=== PATIENT | female | born 1975 | race Caucasian/White ===

== ENCOUNTER 2016-03-20 05:21 | Emergency (ER) | payer MEDICAID ==
--- NOTE | 2016-03-20 05:24 | EDPHY ---
H & P HPI/ROS: HPI CHIEF COMPLAINT: Lightheadedness HISTORY OF PRESENT ILLNESS: This patient 40-year-old female, significant past medical history for anxiety and depression, she is homeless, she presents emergency room by ambulance at 5:30 a.m. in the morning [place] [employer] [place] andcalled 911. She tells me that she feels lightheaded she has been walking all night. She denies chest pain, shortness of breath, denies pain anywhere. She tells me that she feels lightheaded feels dehydrated she tells me she has been drinking lots of fluids but feels dehydrated. She is requesting IV fluids. Past Medical History: Anxiety, depression. Past Surgical History: Denies significant surgical history Social History: Smokes tobacco, homeless, denies alcohol or illicit drug Family History: Noncontributory ROS REVIEW OF SYSTEMS: A comprehensive 10 point review of systems is otherwise negative aside from elements mentioned in the history of present illness. Exam Constitutional appears well nontoxic, no acute distress, triage nursing summary reviewed, vital signs reviewed, awake/alert. Eyes normal conjunctivae and sclera, EOMI, PERRLA. HENT normal inspection, atraumatic, moist mucus membranes, no epistaxis, neck supple/ no meningismus, no raccoon eyes. Respiratory clear to auscultation bilaterally, normal breath sounds, no respiratory distress, no wheezing. Cardiovascular rate normal, regular rhythm, no murmur, no edema, distal pulses normal. Gastrointestinal soft, non-tender, no rebound, no guarding, normal bowel sounds, no distension, no pulsatile mass. Genitourinary no CVA tenderness. Musculoskeletal no midline vertebral tenderness, full range of motion, no calf swelling, no tenderness of extremities, no meningismus, good pulses, neurovascularly intact. Skin pink, warm, & dry, no rash, skin atraumatic. Neurologic awake, alert and oriented x 3, AAOx3, moves all 4 extremities equally, motor intact, sensory intact, CN II-XII intact, normal cerebellar, normal vision, normal speech. Psychiatric normal mood/affect. Heme/Lymph/Immune no lymphadenopathy. Differential Diagnosis: Includes but is not limited to in a particular order, dehydration, electrolyte abnormality, doubt cardiac arrhythmia, homelessness Medical Decision Making: Patient had an IV established will give her a IV fluid bolus as she is requesting IV fluids and says that she is dehydrated however clinically on exam she appears well, check basic electrolytes and EKG. Re-evaluation: EKG interpretation by me on record in [employer] system. Impression time of EKG is 5:50 a.m., this is sinus rhythm rate of 90. No acute ischemic changes. No prolonged intervals. No signs of arrhythmia. Normal appearing EKG. Re-evaluation at 6:04 a.m.: patient is resting comfortably infected time she is sleeping. She is on air sampling and monitoring with any signs of arrhythmia. She feels better after IV fluids. Blood work has been reviewed. She ambulated well to the bathroom and I difficulty. She denies chest pain shortness of breath or dizziness. She is agreeable for discharge. She does understand return to the ER she develops any worsening symptoms questions or concerns. Source: Patient, EMS - Personal History Tetanus Vaccine Date: 2014 - Medical/Surgical History Hx Asthma: No Hx Chronic Respiratory Disease: No Hx Diabetes: No Hx Cardiac Disease: No Hx Renal Disease: No Hx Cirrhosis: No Hx Alcoholism: Yes Hx HIV/AIDS: No Hx Splenectomy or Spleen Trauma: No Other PMH: pmh- suicide attempts, depression, anxiety. PSHx- denies - Social History Smoking Status: Heavy smoker Constitutional: Initial Vital Signs Temperature (C) 37.2 C 03/20/16 05:25 Heart Rate 90 03/20/16 05:25 Respiratory Rate 18 03/20/16 05:25 Blood Pressure 141/103 H 03/20/16 05:25 O2 Sat (%) 94 03/20/16 05:25 O2 Delivery Mode Room Air Allergies/Adverse Reactions: No Known Allergies Allergy (Verified 12/08/15 22:30) Home Medications: Medication Instructions Recorded diphenhydrAMINE 12/20/15 Medical Decision Making - Data Points Laboratory Results: Laboratory Results 03/20/16 05:45 03/20/16 05:45 03/20/16 05:45 WBC 11.87 H 10^3/uL (3.80-9.50) RBC 4.13 L 10^6/uL (4.18-5.33) Hgb 14.1 g/dL (12.6-16.3) Hct 41.6 % (38.0-47.0) MCV 100.7 H fL (81.5-99.8) MCH 34.1 pg (27.9-34.1) MCHC 33.9 g/dL (32.4-36.7) RDW 13.8 % (11.5-15.2) Plt Count 331 10^3/uL (150-400) MPV 9.1 fL (8.7-11.7) Neut % (Auto) 51.8 % (39.3-74.2) Lymph % (Auto) 40.4 % (15.0-45.0) [place] % (Auto) 5.9 % (4.5-13.0) Eos % (Auto) 1.2 % (0.6-7.6) Baso % (Auto) 0.4 % (0.3-1.7) Nucleat RBC Rel Count 0.0 % (0.0-0.2) Absolute Neuts (auto) 6.15 10^3/uL (1.70-6.50) Absolute Lymphs (auto) 4.79 H 10^3/uL (1.00-3.00) Absolute Monos (auto) 0.70 10^3/uL (0.30-0.80) Absolute Eos (auto) 0.14 10^3/uL (0.03-0.40) Absolute Basos (auto) 0.05 10^3/uL (0.02-0.10) Absolute Nucleated RBC 0.00 10^3/uL (0-0.01) Immature Gran % 0.3 % (0.0-1.1) Immature Gran # 0.04 10^3/uL (0.00-0.10) Sodium 138 mEq/L (134-144) Potassium 4.5 mEq/L (3.5-5.2) Chloride 104 mEq/L (97-110) Carbon Dioxide 22 mEq/l (22-31) Anion Gap 12 mEq/L (8-16) BUN 18 mg/dL (7-23) Creatinine 0.8 mg/dL (0.6-1.0) Estimated GFR > 60 Glucose 81 mg/dL (70-100) Calcium 9.6 mg/dL (8.5-10.4) Departure - Departure Disposition: Home, Routine, Self-Care Clinical Impression: Lightheadedness Condition: Good Instructions: Lightheadedness (ED) Additional Instructions: 1. Drink lots of fluids. 2. return emergency room if there is any worsening symptoms questions or concerns. Referrals: NONE *PRIMARY CARE P,. [Primary Care Provider] - As per Instructions
[2016-03-20] MEDS ORDERED: NS 1,000 ML IV ONE (05:26)
[2016-03-20 05:51] LABS: % IMMATURE GRANULYOCYTES 0.3 % (0.0-1.1); ABSOLUTE IMMATURE GRANULOCYTES 0.04 10^3/uL (0.00-0.10); ADD DIFF? NO; ADD MORPH? NO; ADD SCAN? NO; ATYPICAL LYMPHOCYTE FLAG 10 (0-99); FRAGMENT RBC FLAG 0 (0-99); HEMATOCRIT 41.6 % (38.0-47.0); HEMOGLOBIN 14.1 g/dL (12.6-16.3); LEFT SHIFT FLG 0 (0-99); LIPEMIA HEMOLYSIS FLAG 90 (0-99); MEAN CELL HEMOGLOBIN 34.1 pg (27.9-34.1); MEAN CELL HEMOGLOBIN CONCENTR. 33.9 g/dL (32.4-36.7); MEAN CELL VOLUME 100.7 fL (81.5-99.8); MEAN PLATELET VOLUME 9.1 fL (8.7-11.7); PLATELET CLUMPS FLAG 0 (0-99); PLATELET COUNT 331 10^3/uL (150-400); RED BLOOD CELL COUNT 4.13 10^6/uL (4.18-5.33); RED CELL DISTRIBUTION WIDTH 13.8 % (11.5-15.2)
--- NOTE | 2016-03-20 05:53 | CPEKG ---
Heart Rate: 90 RR Interval: 667 P-R Interval: 148 QRSD Interval: 76 QT Interval: 344 QTC Interval: 421 P [place]: 68 QRS [place]: 28 T Wave [place]: 41 EKG Severity - NORMAL ECG - EKG Impression: SINUS RHYTHM Electronically Signed By: Bobby Mercer 21-Mar-2016 22:25:10
[2016-03-20 06:01] LABS: ANION GAP 12 mEq/L (8-16); CALCIUM 9.6 mg/dL (8.5-10.4); CARBON DIOXIDE 22 mEq/l (22-31); CHLORIDE 104 mEq/L (97-110); CREATININE 0.8 mg/dL (0.6-1.0); GLOMERULAR FILTRATION RATE > 60; GLUCOSE 81 mg/dL (70-100); POTASSIUM 4.5 mEq/L (3.5-5.2); SODIUM 138 mEq/L (134-144)
[2016-03-20 07:01] VITALS: BP 127/99; PULSE 93; RESP 17; TEMP 99.7; O2SAT 95
== END 2016-03-20 06:58 | disposition home or self-care (01) ==
LOC: EDUNIT#
DX: R42 Dizziness and giddiness (principal); F17.200 Nicotine dependence, unspecified, uncomplicated

== ENCOUNTER 2016-04-07 06:27 | Emergency (ER) | payer MEDICAID ==
[2016-04-07 06:33] VITALS: PULSE 81
--- NOTE | 2016-04-07 07:40 | EDPHY ---
H & P Stated Complaint: Lower abd pain Time Seen by Provider: 04/07/16 07:38 HPI/ROS: CHIEF COMPLAINT: Lower abdominal pain HISTORY OF PRESENT ILLNESS: The patient is a 40 year old female presenting with new onset of lower abdominal pain. Her pain is constant. She has associated symptoms of dysuria as well as urinary frequency without relief. She has been having some diarrhea as well. Her LMP was 1 week ago. She is not currently sexually active. She denies fever. She notes some nausea, without emesis. REVIEW OF SYSTEMS: Aside from elements discussed in the HPI, a comprehensive 10-point review of systems was reviewed and is negative. PAST MEDICAL HISTORY: Anxiety, Depression SOCIAL HISTORY: Homeless, Cigarette smoker. Nonsmoker. No drug use. VITAL SIGNS: Reviewed by me GENERAL: Well-developed, well-nourished, resting comfortably in no respiratory distress. HEENT: Benign exam. LUNGS: Course with some scattered wheezes. CARDIAC: Regular rate and rhythm, no rubs, murmurs or gallops. ABDOMEN: Soft, no right lower quadrant discomfort. No upper quadrant tenderness. Very mild suprapubic discomfort. No guarding or rebound. Bowel sounds normal. BACK: No CVA tenderness. EXTREMITIES: No trauma. No edema. Range of motion is normal throughout. NEURO: Alert and oriented, grossly nonfocal. SKIN: Warm and dry, no rash. PSYCHIATRIC: Normal mentation, no agitation. Portions of this note were transcribed by a biomedical field service engineer. I personally performed a history, physical exam, medical decision making, and confirmed accuracy of information the transcribed note. Source: Patient - Personal History LMP (Females 10-55): 1-7 Days Ago Current Tetanus/Diphtheria Vaccine: Yes Current Tetanus Diphtheria and Acellular Pertussis (TDAP): Yes Tetanus Vaccine Date: 2014 - Medical/Surgical History Hx Asthma: No Hx Chronic Respiratory Disease: No Hx Diabetes: No Hx Cardiac Disease: No Hx Renal Disease: No Hx Cirrhosis: No Hx Alcoholism: Yes Hx HIV/AIDS: No Hx Splenectomy or Spleen Trauma: No Other PMH: pmh- suicide attempts, depression, anxiety. PSHx- denies - Social History Smoking Status: Heavy smoker Constitutional: Initial Vital Signs Temperature (C) 36.4 C 04/07/16 06:30 Heart Rate 81 04/07/16 06:30 Respiratory Rate 16 04/07/16 06:30 Blood Pressure 161/88 H 04/07/16 06:30 O2 Sat (%) 97 04/07/16 06:30 O2 Delivery Mode Room Air Allergies/Adverse Reactions: No Known Allergies Allergy (Verified 04/07/16 06:29) Home Medications: Medication Instructions Recorded Ibuprofen [Motrin (*)] 600 mg PO TID PRN #20 tab 04/07/16 Medical Decision Making ED Course/Re-evaluation: Plan for UA. Patient received 600mg Ibuprofen PO. Urinalysis shows no signs of infection. Patient was reassured with these findings. Patient again reports no recent sexual intercourse, no vaginal discharge. We discussed further evaluation including blood work or ultrasounds, patient is comfortable following up with her primary care physician and using ibuprofen for discomfort. Given the patient's reassuring exam, I believe this is an appropriate plan of follow-up. Differential Diagnosis: The differential diagnosis for the patient's abdominal pain was considered including but not limited to ovarian cyst, pelvic inflammatory disease, ovarian torsion, urinary tract infection, related complications, and appendicitis. - Data Points Microbiology Results: MICROBIOLOGY 04/07/16 07:03 Urine,Clean Catch Urine Culture - Final Five Or More [place] Types Medications Given: Discontinued Medications Ibuprofen (Motrin) 600 mg PO EDNOW ONE Stop: 04/07/16 07:46 Last Admin: 04/07/16 08:18 Dose: 600 mg Departure - Departure Disposition: Home, Routine, Self-Care Clinical Impression: Suprapubic abdominal pain Condition: Good Instructions: Abdominal Pain (ED) Additional Instructions: Please follow up with her primary care physician at [facility]. If you do not have a primary care physician yet, please make an appointment and establish care. Return to the emergency department or seek care urgently if you develop worsening pain, fevers, blood in the urine, nausea, vomiting, or diarrhea. Referrals: NONE *PRIMARY CARE P,. [Primary Care Provider] - As per Instructions [facility],. [Clinic] - As per Instructions Prescriptions: Ibuprofen [Motrin (*)] 600 mg PO TID PRN #20 tab PRN Reason: pain Report Scribed for: Ewelina Dunn Report Scribed by: Alissa Zapien Date of Report: 04/07/16 Time of Report: 07:45
[2016-04-07] MEDS ORDERED: IBUPROFEN 600 MG TAB PO ONE (07:45)
[2016-04-07 07:54] LABS: COLOR PALE YELLOW; LEUKOCYTE ESTERASE,URINE NEGATIVE (NEGATIVE); NITRITE,URINE NEGATIVE (NEGATIVE)
[2016-04-07 08:19] VITALS: BP 139/92; RESP 18; TEMP 97.9; O2SAT 96
== END 2016-04-07 08:19 | disposition home or self-care (01) ==
DX: R10.9 Unspecified abdominal pain (principal); F17.210 Nicotine dependence, cigarettes, uncomplicated